=== PATIENT | male | born 1995 | race Caucasian/White ===

== ENCOUNTER 2019-04-06 11:22 | Inpatient (IN) | payer OTHER ==
[2019-04-06 12:17] LABS: ADD MAN DIFF? NO
[2019-04-06 12:22] LABS: BASOPHILS % 0.3 % (0.0-2.0); EOSINOPHILS # 0.3 10^3/ul (0.0-0.5); EOSINOPHILS % 4.2 % (0.0-7.0); HEMATOCRIT 42.4 % (42.0-52.0); HEMOGLOBIN 14.4 g/dl (14.0-18.0); LYMPHOCYTES # 0.8 10^3/ul (0.8-2.9); LYMPHOCYTES % 11.9 % (15.0-51.0); MEAN CORPUSCULAR HEMOGLOBIN 30.5 pg (29.0-33.0); MEAN CORPUSCULAR VOLUME 89.8 fl (82.0-101.0); MEAN PLATELET VOLUME 8.5 fl (7.4-10.4); MONOCYTE # 0.5 10^3/ul (0.3-0.9); NEUTROPHIL # 5.3 10^3/ul (1.6-7.5); NEUTROPHILS % 75.9 % (39.0-77.0); PLATELET COUNT 173 10^3/UL (140-415); RED BLOOD COUNT 4.72 10^6/ul (4.70-6.10); RED CELL DISTRIBUTION WIDTH 11.9 % (11.5-14.5)
[2019-04-06] MEDS: SOD CHLORIDE 0.9% 1,000 ML IV (12:26)
[2019-04-06 12:39] LABS: ALANINE AMINOTRANSFERASE 38 IU/L (13-69); ALBUMIN/GLOBULIN RATIO 1.17; ALKALINE PHOSPHATASE 124 IU/L (42-121); ANION GAP 5 (5-13); ASPARTATE AMINO TRANSFERASE 26 IU/L (15-46); BILIRUBIN,INDIRECT 0.5 mg/dl (0-1.1); BILIRUBIN,TOTAL 0.5 mg/dl (0.2-1.3); BLOOD UREA NITROGEN 23 mg/dl (7-20); CALCIUM 9.3 mg/dl (8.4-10.2); CARBON DIOXIDE 32 mmol/L (21-31); CHLORIDE 101 mmol/L (97-110); CREATININE 0.87 mg/dl (0.61-1.24); Estimated GFR > 60 mL/min (>60); GLUCOSE 97 mg/dl (70-220); LIPASE 40 U/L (23-300); POTASSIUM 4.2 mmol/L (3.5-5.1); SODIUM 138 mmol/L (135-144); TOTAL PROTEIN 7.4 g/dl (6.1-8.1)
[2019-04-06 12:52] LABS: ADD UMIC NO; UR ASCORBIC ACID NEGATIVE (NEGATIVE); UR BILIRUBIN (Dip) NEGATIVE (NEGATIVE); UR BLOOD (Dip) NEGATIVE (NEGATIVE); UR CLARITY CLEAR (CLEAR); UR COLOR YELLOW (YELLOW); UR GLUCOSE (Dip) NEGATIVE (NEGATIVE); UR KETONES (Dip) NEGATIVE (NEGATIVE); UR LEUKOCYTE ESTERASE (Dip) NEGATIVE Leu/ul (NEGATIVE); UR NITRITE (Dip) NEGATIVE (NEGATIVE); UR SPECIFIC GRAVITY (Dip) 1.029 (1.003-1.030); UR TOTAL PROTEIN (Dip) NEGATIVE (NEGATIVE); UR UROBILINOGEN (Dip) NEGATIVE (NEGATIVE)
[2019-04-06] MEDS ORDERED: ACETAMINOPHEN 325 MG TAB PO (13:00)
[2019-04-06] MEDS ORDERED: ONDANSETRON 4 MG INJ IV (13:00)
[2019-04-06 15:12] LABS: INR 0.95; PROTIME 12.8 Sec (11.9-14.9)
[2019-04-06 15:13] LABS: PARTIAL THROMBOPLASTIN TIME 37.6 Sec (23.0-35.0)
[2019-04-06 15:18] LABS: LACTATE DEHYDROGENASE 536 IU/L (313-618)
[2019-04-06 15:18] LABS: URIC ACID 8.2 mg/dl (3.1-7.9)
[2019-04-06 15:50] LABS: HEPATITIS B SURFACE ANTIGEN NEGATIVE (NEGATIVE)
[2019-04-06 16:07] LABS: HEPATITIS C VIRAL ANTIBODY NEGATIVE (NEGATIVE); HIV 1&2 ANTIBODY NEGATIVE (NEGATIVE)
[2019-04-06] MEDS ORDERED: ZOLPIDEM 5 MG TAB PO (17:00)
[2019-04-06] MEDS: DOCUSATE SODIUM 100 MG CAP PO (17:00)
[2019-04-07] MEDS: DEXTROSE 5%-0.45% NACL 1,000 ML IV ×3 (01:31→21:47)
[2019-04-07] MEDS: DOCUSATE SODIUM 100 MG CAP PO ×2 (05:00→17:55)
[2019-04-07 06:12] LABS: ADD MAN DIFF? NO
[2019-04-07 06:21] LABS: BASOPHILS % 0.2 % (0.0-2.0); EOSINOPHILS # 0.3 10^3/ul (0.0-0.5); EOSINOPHILS % 5.4 % (0.0-7.0); HEMATOCRIT 39.1 % (42.0-52.0); HEMOGLOBIN 13.1 g/dl (14.0-18.0); LYMPHOCYTES # 1.7 10^3/ul (0.8-2.9); LYMPHOCYTES % 28.7 % (15.0-51.0); MEAN CORPUSCULAR HEMOGLOBIN 30.3 pg (29.0-33.0); MEAN CORPUSCULAR HGB CONC 33.5 g/dl (32.0-37.0); MEAN CORPUSCULAR VOLUME 90.5 fl (82.0-101.0); MEAN PLATELET VOLUME 9.1 fl (7.4-10.4); MONOCYTE # 0.6 10^3/ul (0.3-0.9); NEUTROPHIL # 3.2 10^3/ul (1.6-7.5); NEUTROPHILS % 54.9 % (39.0-77.0); PLATELET COUNT 173 10^3/UL (140-415); RED BLOOD COUNT 4.32 10^6/ul (4.70-6.10); RED CELL DISTRIBUTION WIDTH 12.3 % (11.5-14.5)
[2019-04-07 06:21] LABS: WHITE BLOOD COUNT 5.9 10^3/ul (4.8-10.8)
[2019-04-07 06:59] LABS: ANION GAP 6 (5-13); BLOOD UREA NITROGEN 18 mg/dl (7-20); CARBON DIOXIDE 31 mmol/L (21-31); CHLORIDE 101 mmol/L (97-110); CREATININE 0.87 mg/dl (0.61-1.24); Estimated GFR > 60 mL/min (>60); GLUCOSE 105 mg/dl (70-220); PHOSPHORUS 4.9 mg/dl (2.5-4.9); POTASSIUM 4.3 mmol/L (3.5-5.1); SODIUM 138 mmol/L (135-144)
[2019-04-07] MEDS: ENOXAPARIN 40 MG/0.4 ML SYG SC (08:12)
[2019-04-07] MEDS: FAMOTIDINE 20 MG TAB PO (08:14)
[2019-04-07] MEDS: HYDROCODONE/APAP (5/325) TAB PO (10:28)
[2019-04-07] MEDS: ALLOPURINOL 300 MG TAB PO (14:36)
[2019-04-07 16:47] LABS: PHOSPHORUS 4.2 mg/dl (2.5-4.9)
[2019-04-08] MEDS: DOCUSATE SODIUM 100 MG CAP PO ×2 (05:00→21:17)
[2019-04-08] MEDS: DEXTROSE 5%-0.45% NACL 1,000 ML IV ×2 (08:02→21:41)
[2019-04-08] MEDS: ENOXAPARIN 40 MG/0.4 ML SYG SC (09:00)
[2019-04-08] MEDS: ALLOPURINOL 300 MG TAB PO (09:16)
[2019-04-08] MEDS: FAMOTIDINE 20 MG TAB PO (09:16)
[2019-04-08] MEDS: FENTAnyl 50 MCG/ML VIAL ×3 (15:05→17:26)
[2019-04-08] MEDS: MIDAZOLAM 1 MG/ML 2 ML INJ ×3 (15:06→17:26)
[2019-04-08] MEDS: CEFAZOLIN 1 GM/50 ML (PMX) 50 ML IVPB (15:30)
[2019-04-08] MEDS: POLYMYXIN/BACITRACIN 1L IRRIG IRR (15:30)
[2019-04-08] MEDS: LIDOCAINE 1% (MDV) 20 ML INJ (15:31)
[2019-04-08] MEDS: LIDOCAINE 1%/EPI 30 ML INJ (16:25)
[2019-04-08] MEDS: morphine 2 MG INJ IV (21:16)
[2019-04-08] MEDS: HYDROCODONE/APAP (5/325) TAB PO (23:06)
[2019-04-09] MEDS: morphine 2 MG INJ IV (01:45)
[2019-04-09] MEDS: DOCUSATE SODIUM 100 MG CAP PO ×2 (06:11→16:51)
[2019-04-09] MEDS: HYDROCODONE/APAP (5/325) TAB PO ×2 (06:11→13:51)
[2019-04-09] MEDS: DEXTROSE 5%-0.45% NACL 1,000 ML IV ×3 (08:16→16:51)
[2019-04-09] MEDS: FAMOTIDINE 20 MG TAB PO (08:59)
[2019-04-09] MEDS: ALLOPURINOL 300 MG TAB PO (08:59)
[2019-04-09] MEDS: ENOXAPARIN 40 MG/0.4 ML SYG SC (09:25)
[2019-04-09] MEDS: HYDROmorphONE 1 MG/ML SYG IV ×3 (11:56→22:16)
[2019-04-10] MEDS: HYDROCODONE/APAP (5/325) TAB PO (00:56)
[2019-04-10] MEDS: DOCUSATE SODIUM 100 MG CAP PO ×2 (05:00→16:58)
[2019-04-10 06:05] LABS: ADD MAN DIFF? NO
[2019-04-10 06:16] LABS: WHITE BLOOD COUNT 7.1 10^3/ul (4.8-10.8)
[2019-04-10 06:16] LABS: BASOPHILS % 0.3 % (0.0-2.0); EOSINOPHILS # 0.3 10^3/ul (0.0-0.5); EOSINOPHILS % 4.4 % (0.0-7.0); HEMATOCRIT 39.6 % (42.0-52.0); HEMOGLOBIN 13.2 g/dl (14.0-18.0); LYMPHOCYTES # 1.8 10^3/ul (0.8-2.9); LYMPHOCYTES % 25.9 % (15.0-51.0); MEAN CORPUSCULAR HEMOGLOBIN 30.3 pg (29.0-33.0); MEAN CORPUSCULAR HGB CONC 33.3 g/dl (32.0-37.0); MEAN PLATELET VOLUME 8.9 fl (7.4-10.4); MONOCYTE # 0.6 10^3/ul (0.3-0.9); MONOCYTES % 8.6 % (0.0-11.0); NEUTROPHIL # 4.3 10^3/ul (1.6-7.5); NEUTROPHILS % 60.2 % (39.0-77.0); PLATELET COUNT 196 10^3/UL (140-415); RED BLOOD COUNT 4.35 10^6/ul (4.70-6.10); RED CELL DISTRIBUTION WIDTH 12.3 % (11.5-14.5)
[2019-04-10 06:32] LABS: ANION GAP 7 (5-13); BLOOD UREA NITROGEN 16 mg/dl (7-20); CALCIUM 9.4 mg/dl (8.4-10.2); CARBON DIOXIDE 31 mmol/L (21-31); CHLORIDE 101 mmol/L (97-110); CREATININE 0.93 mg/dl (0.61-1.24); Estimated GFR > 60 mL/min (>60); GLUCOSE 121 mg/dl (70-220); POTASSIUM 4.2 mmol/L (3.5-5.1); SODIUM 139 mmol/L (135-144)
[2019-04-10] MEDS: SOD CHLORIDE 0.45% 1,000 ML IV (09:25)
[2019-04-10] MEDS: ALLOPURINOL 300 MG TAB PO (09:25)
[2019-04-10] MEDS: FAMOTIDINE 20 MG TAB PO (09:25)
[2019-04-10] MEDS: ENOXAPARIN 40 MG/0.4 ML SYG SC (09:32)
[2019-04-10] MEDS: HYDROmorphONE 1 MG/ML SYG IV ×2 (09:40→09:41)
[2019-04-10] MEDS: DEXAMETHASONE 4 MG/ML 20 MG, ONDANSETRON INJ 16 MG in SOD CHLORIDE 0.9% 50 ML IVPB (11:50)
[2019-04-10] MEDS: ACETAMINOPHEN 325 MG TAB PO (11:53)
[2019-04-10] MEDS: DIPHENHYDRAMINE 50 MG INJ IV (11:57)
[2019-04-10] MEDS: RITUXIMAB IV (13:20)
[2019-04-10] MEDS: SOD CHLORIDE 0.9% IV (13:20)
[2019-04-10] MEDS: METHYLPREDNISOLONE 125 MG INJ IV (15:49)
[2019-04-10] MEDS ORDERED: ONDANSETRON INJ 8 MG in DEXTROSE 5% 50 ML IV (22:00)
[2019-04-11] MEDS: ONDANSETRON INJ 16 MG, DEXAMETHASONE 4 MG/ML 20 MG in DEXTROSE 5% 50 ML IV (00:30)
[2019-04-11] MEDS: SOD CHLORIDE 0.45% 1,000 ML IV ×3 (00:30→23:31)
[2019-04-11] MEDS: DIPHENHYDRAMINE 50 MG INJ IV (00:36)
[2019-04-11] MEDS: DOXORUBICIN IV (01:02)
[2019-04-11] MEDS: SOD CHLORIDE 0.9% IV (01:02)
[2019-04-11] MEDS: ETOPOSIDE IV (01:02)
[2019-04-11] MEDS: VINCRISTINE IV (01:02)
[2019-04-11] MEDS: ONDANSETRON 4 MG INJ IV (03:16)
[2019-04-11] MEDS: HYDROmorphONE 1 MG/ML SYG IV ×3 (03:47→20:47)
[2019-04-11 05:17] LABS: ADD MAN DIFF? NO
[2019-04-11] MEDS: DOCUSATE SODIUM 100 MG CAP PO ×2 (05:22→17:00)
[2019-04-11 05:23] LABS: ABNORMAL IP MESSAGE 1; BASOPHILS % 0.1 % (0.0-2.0); HEMOGLOBIN 13.6 g/dl (14.0-18.0); LYMPHOCYTES # 0.5 10^3/ul (0.8-2.9); LYMPHOCYTES % 5.4 % (15.0-51.0); MEAN CORPUSCULAR HEMOGLOBIN 31.1 pg (29.0-33.0); MEAN CORPUSCULAR HGB CONC 34.9 g/dl (32.0-37.0); MONOCYTE # 0.1 10^3/ul (0.3-0.9); NEUTROPHIL # 9.1 10^3/ul (1.6-7.5); NEUTROPHILS % 92.8 % (39.0-77.0); PLATELET COUNT 226 10^3/UL (140-415); POSITIVE DIFF @See below; RED BLOOD COUNT 4.38 10^6/ul (4.70-6.10); RED CELL DISTRIBUTION WIDTH 11.9 % (11.5-14.5)
[2019-04-11 05:23] LABS: WHITE BLOOD COUNT 9.8 10^3/ul (4.8-10.8)
[2019-04-11 05:38] LABS: URIC ACID 5.1 mg/dl (3.1-7.9)
[2019-04-11 05:58] LABS: ANION GAP 11 (5-13); BLOOD UREA NITROGEN 18 mg/dl (7-20); CALCIUM 9.7 mg/dl (8.4-10.2); CARBON DIOXIDE 25 mmol/L (21-31); CHLORIDE 103 mmol/L (97-110); CREATININE 0.88 mg/dl (0.61-1.24); Estimated GFR > 60 mL/min (>60); GLUCOSE 168 mg/dl (70-220); POTASSIUM 4.2 mmol/L (3.5-5.1); SODIUM 139 mmol/L (135-144)
[2019-04-11] MEDS: FAMOTIDINE 20 MG TAB PO (08:54)
[2019-04-11] MEDS: predniSONE 20 MG TAB PO (08:55)
[2019-04-11] MEDS: ALLOPURINOL 300 MG TAB PO (08:55)
[2019-04-11] MEDS ORDERED: predniSONE 20 MG TAB PO (09:00)
[2019-04-11] MEDS: ENOXAPARIN 40 MG/0.4 ML SYG SC (09:01)
[2019-04-11 09:39] LABS: ADD UMIC NO; UR ASCORBIC ACID NEGATIVE (NEGATIVE); UR BILIRUBIN (Dip) NEGATIVE (NEGATIVE); UR BLOOD (Dip) NEGATIVE (NEGATIVE); UR CLARITY CLEAR (CLEAR); UR COLOR YELLOW (YELLOW); UR GLUCOSE (Dip) NEGATIVE (NEGATIVE); UR KETONES (Dip) NEGATIVE (NEGATIVE); UR LEUKOCYTE ESTERASE (Dip) NEGATIVE Leu/ul (NEGATIVE); UR NITRITE (Dip) NEGATIVE (NEGATIVE); UR TOTAL PROTEIN (Dip) NEGATIVE (NEGATIVE); UR UROBILINOGEN (Dip) NEGATIVE (NEGATIVE)
[2019-04-11] MEDS: ONDANSETRON INJ 16 MG in SOD CHLORIDE 0.9% 50 ML IVPB (23:30)
[2019-04-12] MEDS: DIPHENHYDRAMINE 50 MG INJ IV (00:07)
[2019-04-12] MEDS: VINCRISTINE IV (00:27)
[2019-04-12] MEDS: DOXORUBICIN IV (00:27)
[2019-04-12] MEDS: ETOPOSIDE IV (00:27)
[2019-04-12] MEDS: SOD CHLORIDE 0.9% IV (00:27)
[2019-04-12] MEDS: DOCUSATE SODIUM 100 MG CAP PO ×2 (05:00→17:21)
[2019-04-12 05:18] LABS: ADD MAN DIFF? NO
[2019-04-12 05:35] LABS: BASOPHILS % 0.2 % (0.0-2.0); HEMATOCRIT 37.4 % (42.0-52.0); HEMOGLOBIN 12.8 g/dl (14.0-18.0); LYMPHOCYTES % 7.2 % (15.0-51.0); MEAN CORPUSCULAR HEMOGLOBIN 31.1 pg (29.0-33.0); MEAN CORPUSCULAR HGB CONC 34.2 g/dl (32.0-37.0); MEAN CORPUSCULAR VOLUME 90.8 fl (82.0-101.0); MEAN PLATELET VOLUME 9.3 fl (7.4-10.4); MONOCYTE # 1.2 10^3/ul (0.3-0.9); MONOCYTES % 9.4 % (0.0-11.0); NEUTROPHIL # 10.9 10^3/ul (1.6-7.5); NEUTROPHILS % 82.6 % (39.0-77.0); PLATELET COUNT 236 10^3/UL (140-415); RED BLOOD COUNT 4.12 10^6/ul (4.70-6.10); RED CELL DISTRIBUTION WIDTH 12.3 % (11.5-14.5)
[2019-04-12 05:35] LABS: WHITE BLOOD COUNT 13.2 10^3/ul (4.8-10.8)
[2019-04-12 06:00] LABS: ANION GAP 8 (5-13); BLOOD UREA NITROGEN 18 mg/dl (7-20); CALCIUM 9.2 mg/dl (8.4-10.2); CARBON DIOXIDE 27 mmol/L (21-31); CHLORIDE 104 mmol/L (97-110); CREATININE 0.81 mg/dl (0.61-1.24); Estimated GFR > 60 mL/min (>60); GLUCOSE 137 mg/dl (70-220); POTASSIUM 3.9 mmol/L (3.5-5.1); SODIUM 139 mmol/L (135-144)
[2019-04-12] MEDS: ALLOPURINOL 300 MG TAB PO (08:53)
[2019-04-12] MEDS: FAMOTIDINE 20 MG TAB PO (08:53)
[2019-04-12] MEDS: ENOXAPARIN 40 MG/0.4 ML SYG SC (08:57)
[2019-04-12] MEDS: HYDROCODONE/APAP (5/325) TAB PO (10:08)
[2019-04-12] MEDS: predniSONE 20 MG TAB PO (10:08)
[2019-04-12] MEDS: MAGNESIUM HYDROXIDE 30ML CUP PO (15:10)
[2019-04-12] MEDS: SOD CHLORIDE 0.45% 1,000 ML IV (15:28)
[2019-04-12] MEDS: HYDROmorphONE 1 MG/ML SYG IV (16:17)
[2019-04-12] MEDS: ACETAMINOPHEN 325 MG TAB PO (20:39)
[2019-04-13] MEDS: ONDANSETRON INJ 16 MG in SOD CHLORIDE 0.9% 50 ML IVPB (01:02)
[2019-04-13] MEDS: DIPHENHYDRAMINE 50 MG INJ IV (01:50)
[2019-04-13] MEDS: VINCRISTINE IV (02:01)
[2019-04-13] MEDS: DOXORUBICIN IV (02:01)
[2019-04-13] MEDS: ETOPOSIDE IV (02:01)
[2019-04-13] MEDS: SOD CHLORIDE 0.9% IV (02:01)
[2019-04-13] MEDS: SOD CHLORIDE 0.45% 1,000 ML IV (03:59)
[2019-04-13 05:42] LABS: ADD MAN DIFF? NO
[2019-04-13 05:53] LABS: WHITE BLOOD COUNT 6.1 10^3/ul (4.8-10.8)
[2019-04-13 05:53] LABS: BASOPHILS % 0.2 % (0.0-2.0); EOSINOPHILS % 0.3 % (0.0-7.0); HEMATOCRIT 36.9 % (42.0-52.0); HEMOGLOBIN 12.6 g/dl (14.0-18.0); LYMPHOCYTES # 1.3 10^3/ul (0.8-2.9); LYMPHOCYTES % 21.7 % (15.0-51.0); MEAN CORPUSCULAR HEMOGLOBIN 30.4 pg (29.0-33.0); MEAN CORPUSCULAR HGB CONC 34.1 g/dl (32.0-37.0); MEAN CORPUSCULAR VOLUME 89.1 fl (82.0-101.0); MEAN PLATELET VOLUME 9.1 fl (7.4-10.4); MONOCYTE # 0.6 10^3/ul (0.3-0.9); NEUTROPHIL # 4.1 10^3/ul (1.6-7.5); NEUTROPHILS % 67.1 % (39.0-77.0); PLATELET COUNT 223 10^3/UL (140-415); RED BLOOD COUNT 4.14 10^6/ul (4.70-6.10); RED CELL DISTRIBUTION WIDTH 12.5 % (11.5-14.5)
[2019-04-13 06:17] LABS: ANION GAP 8 (5-13); BLOOD UREA NITROGEN 18 mg/dl (7-20); CALCIUM 9.1 mg/dl (8.4-10.2); CARBON DIOXIDE 28 mmol/L (21-31); CHLORIDE 102 mmol/L (97-110); CREATININE 0.76 mg/dl (0.61-1.24); Estimated GFR > 60 mL/min (>60); GLUCOSE 95 mg/dl (70-220); POTASSIUM 3.9 mmol/L (3.5-5.1); SODIUM 138 mmol/L (135-144)
[2019-04-13] MEDS: DOCUSATE SODIUM 100 MG CAP PO ×2 (09:21→21:06)
[2019-04-13] MEDS: ALLOPURINOL 300 MG TAB PO (09:21)
[2019-04-13] MEDS: FAMOTIDINE 20 MG TAB PO (09:22)
[2019-04-13] MEDS: ENOXAPARIN 40 MG/0.4 ML SYG SC (09:32)
[2019-04-13] MEDS: predniSONE 20 MG TAB PO (09:54)
[2019-04-13] MEDS: HYDROmorphONE 1 MG/ML SYG IV ×2 (12:17→18:22)
[2019-04-13] MEDS: HYDROCODONE/APAP (5/325) TAB PO (15:03)
[2019-04-13] MEDS: FAMOTIDINE 20 MG INJ IV (15:42)
[2019-04-14] MEDS: HYDROCODONE/APAP (5/325) TAB PO (00:22)
[2019-04-14] MEDS: ETOPOSIDE IV ×2 (01:00→05:23)
[2019-04-14] MEDS: DOXORUBICIN IV ×2 (01:00→05:23)
[2019-04-14] MEDS: SOD CHLORIDE 0.9% IV ×2 (01:00→05:23)
[2019-04-14] MEDS: VINCRISTINE IV ×2 (01:00→05:23)
[2019-04-14] MEDS: DIPHENHYDRAMINE 50 MG INJ IV (02:30)
[2019-04-14] MEDS: ONDANSETRON INJ 16 MG in SOD CHLORIDE 0.9% 50 ML IVPB (04:25)
[2019-04-14 06:04] LABS: ADD MAN DIFF? NO
[2019-04-14 06:14] LABS: BASOPHILS % 0.2 % (0.0-2.0); EOSINOPHILS % 0.2 % (0.0-7.0); HEMATOCRIT 36.5 % (42.0-52.0); HEMOGLOBIN 12.7 g/dl (14.0-18.0); LYMPHOCYTES # 1.7 10^3/ul (0.8-2.9); LYMPHOCYTES % 27.2 % (15.0-51.0); MEAN CORPUSCULAR HEMOGLOBIN 30.6 pg (29.0-33.0); MEAN CORPUSCULAR HGB CONC 34.8 g/dl (32.0-37.0); MEAN PLATELET VOLUME 9.1 fl (7.4-10.4); MONOCYTE # 0.3 10^3/ul (0.3-0.9); NEUTROPHIL # 4.3 10^3/ul (1.6-7.5); NEUTROPHILS % 67.9 % (39.0-77.0); PLATELET COUNT 217 10^3/UL (140-415); RED BLOOD COUNT 4.15 10^6/ul (4.70-6.10); RED CELL DISTRIBUTION WIDTH 12.1 % (11.5-14.5)
[2019-04-14 06:14] LABS: WHITE BLOOD COUNT 6.3 10^3/ul (4.8-10.8)
[2019-04-14 06:43] LABS: ANION GAP 6 (5-13); BLOOD UREA NITROGEN 18 mg/dl (7-20); CALCIUM 9.1 mg/dl (8.4-10.2); CARBON DIOXIDE 30 mmol/L (21-31); CHLORIDE 101 mmol/L (97-110); Estimated GFR > 60 mL/min (>60); GLUCOSE 98 mg/dl (70-220); POTASSIUM 3.7 mmol/L (3.5-5.1); SODIUM 137 mmol/L (135-144)
[2019-04-14] MEDS: ALLOPURINOL 300 MG TAB PO (09:08)
[2019-04-14] MEDS: DOCUSATE SODIUM 100 MG CAP PO ×2 (09:08→21:17)
[2019-04-14] MEDS: FAMOTIDINE 20 MG TAB PO (09:09)
[2019-04-14] MEDS: ENOXAPARIN 40 MG/0.4 ML SYG SC (09:14)
[2019-04-14] MEDS: ACETAMINOPHEN 325 MG TAB PO ×2 (09:29→21:23)
[2019-04-14] MEDS: predniSONE 20 MG TAB PO (10:14)
[2019-04-14] MEDS: HYDROmorphONE 1 MG/ML SYG IV ×2 (15:32→23:07)
[2019-04-14] MEDS: FAMOTIDINE 20 MG INJ IV (18:47)
[2019-04-15] MEDS: DIPHENHYDRAMINE 50 MG INJ IV (00:42)
[2019-04-15 05:47] LABS: ADD MAN DIFF? NO
[2019-04-15 05:54] LABS: BASOPHILS % 0.2 % (0.0-2.0); EOSINOPHILS % 0.5 % (0.0-7.0); HEMATOCRIT 37.8 % (42.0-52.0); HEMOGLOBIN 13.1 g/dl (14.0-18.0); LYMPHOCYTES # 1.7 10^3/ul (0.8-2.9); LYMPHOCYTES % 25.7 % (15.0-51.0); MEAN CORPUSCULAR HGB CONC 34.7 g/dl (32.0-37.0); MEAN CORPUSCULAR VOLUME 86.7 fl (82.0-101.0); MONOCYTE # 0.1 10^3/ul (0.3-0.9); MONOCYTES % 1.8 % (0.0-11.0); NEUTROPHIL # 4.8 10^3/ul (1.6-7.5); NEUTROPHILS % 71.5 % (39.0-77.0); PLATELET COUNT 235 10^3/UL (140-415); RED BLOOD COUNT 4.36 10^6/ul (4.70-6.10); RED CELL DISTRIBUTION WIDTH 11.9 % (11.5-14.5)
[2019-04-15 05:54] LABS: WHITE BLOOD COUNT 6.7 10^3/ul (4.8-10.8)
[2019-04-15 06:45] LABS: ANION GAP 8 (5-13); BLOOD UREA NITROGEN 19 mg/dl (7-20); CALCIUM 9.1 mg/dl (8.4-10.2); CARBON DIOXIDE 29 mmol/L (21-31); CHLORIDE 100 mmol/L (97-110); CREATININE 0.82 mg/dl (0.61-1.24); Estimated GFR > 60 mL/min (>60); GLUCOSE 95 mg/dl (70-220); POTASSIUM 3.7 mmol/L (3.5-5.1); SODIUM 137 mmol/L (135-144)
[2019-04-15] MEDS: ONDANSETRON 4 MG INJ IV (09:21)
[2019-04-15] MEDS: ALLOPURINOL 300 MG TAB PO (09:22)
[2019-04-15] MEDS: DOCUSATE SODIUM 100 MG CAP PO ×2 (09:22→20:00)
[2019-04-15] MEDS: HYDROmorphONE 1 MG/ML SYG IV ×3 (09:22→23:25)
[2019-04-15] MEDS: FAMOTIDINE 20 MG TAB PO (09:23)
[2019-04-15] MEDS: ENOXAPARIN 40 MG/0.4 ML SYG SC (09:24)
[2019-04-15] MEDS: ONDANSETRON INJ 16 MG in SOD CHLORIDE 0.9% 50 ML IVPB (16:40)
[2019-04-15] MEDS: ACETAMINOPHEN 325 MG TAB PO (16:44)
[2019-04-15] MEDS: SOD CHLORIDE 0.9% IV (17:42)
[2019-04-15] MEDS: CYCLOPHOSPHAMIDE IV (17:42)
[2019-04-15] MEDS: SOD CHLORIDE 0.45% 1,000 ML IV (18:17)
[2019-04-15] MEDS: HYDROCODONE/APAP (5/325) TAB PO (20:36)
[2019-04-16] MEDS: DIPHENHYDRAMINE 50 MG INJ IV (00:13)
[2019-04-16 05:14] LABS: WHITE BLOOD COUNT 5.2 10^3/ul (4.8-10.8)
[2019-04-16 05:14] LABS: HEMATOCRIT 35.7 % (42.0-52.0); HEMOGLOBIN 12.5 g/dl (14.0-18.0); MEAN CORPUSCULAR HEMOGLOBIN 30.6 pg (29.0-33.0); MEAN CORPUSCULAR VOLUME 87.5 fl (82.0-101.0); MEAN PLATELET VOLUME 8.8 fl (7.4-10.4); PLATELET COUNT 202 10^3/UL (140-415); POSITIVE DIFF @See below; RED BLOOD COUNT 4.08 10^6/ul (4.70-6.10); RED CELL DISTRIBUTION WIDTH 11.9 % (11.5-14.5)
[2019-04-16 05:18] LABS: ADD MAN DIFF? YES
[2019-04-16 05:35] LABS: ANION GAP 5 (5-13); BLOOD UREA NITROGEN 17 mg/dl (7-20); CALCIUM 8.7 mg/dl (8.4-10.2); CARBON DIOXIDE 32 mmol/L (21-31); CHLORIDE 100 mmol/L (97-110); CREATININE 0.83 mg/dl (0.61-1.24); Estimated GFR > 60 mL/min (>60); GLUCOSE 90 mg/dl (70-220); POTASSIUM 3.8 mmol/L (3.5-5.1); SODIUM 137 mmol/L (135-144)
[2019-04-16] MEDS: SOD CHLORIDE 0.45% 1,000 ML IV ×2 (06:46→22:08)
[2019-04-16 07:11] LABS: BAND NEUTROPHILS % (M) 1 % (0-4); BASOPHILS % (M) 1 % (0-2); EOSINOPHILS % (M) 4 % (0-7); LYMPHOCYTES % (M) 40 % (15-51); PLATELET ESTIMATE NORMAL; POIKILOCYTOSIS 1+ (0-0); REACTIVE LYMPHOCYTES #M 0.1 10^3/ul (0.0-0.0); REACTIVE LYMPHOCYTES% (M) 3 % (0-0); SEG NEUT #M 2.7 10^3/ul (1.6-7.5); SEGMENTED NEUTROPHILS (M) % 51 % (39-77); SMUDGE%M 54 % (0-0)
[2019-04-16] MEDS: DOCUSATE SODIUM 100 MG CAP PO ×2 (09:15→20:09)
[2019-04-16] MEDS: FAMOTIDINE 20 MG TAB PO (09:16)
[2019-04-16] MEDS: ALLOPURINOL 300 MG TAB PO (09:16)
[2019-04-16] MEDS: ENOXAPARIN 40 MG/0.4 ML SYG SC (09:29)
[2019-04-16] MEDS: HYDROmorphONE 1 MG/ML SYG IV ×3 (10:09→21:17)
[2019-04-16] MEDS: FILGRASTIM-AAFI 480 MCG/0.8 ML SYRINGE SC (16:35)
[2019-04-16] MEDS: HYDROCODONE/APAP (5/325) TAB PO (20:10)
[2019-04-17] MEDS: DIPHENHYDRAMINE 50 MG INJ IV (00:57)
[2019-04-17] MEDS: HYDROmorphONE 1 MG/ML SYG IV ×4 (01:19→20:48)
[2019-04-17] MEDS: ALLOPURINOL 300 MG TAB PO (09:06)
[2019-04-17] MEDS: DOCUSATE SODIUM 100 MG CAP PO ×2 (09:06→20:48)
[2019-04-17] MEDS: FAMOTIDINE 20 MG TAB PO ×2 (09:06→20:48)
[2019-04-17] MEDS: ENOXAPARIN 40 MG/0.4 ML SYG SC (09:08)
[2019-04-17] MEDS: ACETAMINOPHEN 500 MG TAB PO (09:13)
[2019-04-17] MEDS: KETOROLAC 15 MG INJ IV (09:13)
[2019-04-17] MEDS: SOD CHLORIDE 0.45% 1,000 ML IV ×2 (10:30→13:11)
[2019-04-17] MEDS: METOCLOPRAMIDE 10 MG INJ IV (12:29)
[2019-04-17] MEDS: DIPHENHYD/MYLANTA/LIDO (PO SYG) PO ×2 (13:11→18:14)
[2019-04-17] MEDS: PANTOPRAZOLE (EC) 40 MG TAB PO (13:11)
[2019-04-17] MEDS: FILGRASTIM-AAFI 480 MCG/0.8 ML SYRINGE SC (17:43)
[2019-04-17] MEDS: POLYETHYLENE GLYCOL 17 GM PACKET PO (20:48)
[2019-04-17] MEDS: HYDROCODONE/APAP (5/325) TAB PO (23:26)
[2019-04-18] MEDS: DIPHENHYDRAMINE 50 MG INJ IV (00:56)
[2019-04-18] MEDS: DIPHENHYD/MYLANTA/LIDO (PO SYG) PO ×3 (00:57→11:45)
[2019-04-18] MEDS: HYDROmorphONE 1 MG/ML SYG IV ×2 (00:57→10:36)
[2019-04-18] MEDS: SOD CHLORIDE 0.45% 1,000 ML IV (02:12)
[2019-04-18] MEDS: ALLOPURINOL 300 MG TAB PO (08:27)
[2019-04-18] MEDS: FAMOTIDINE 20 MG TAB PO (08:28)
[2019-04-18] MEDS: DOCUSATE SODIUM 100 MG CAP PO (08:28)
[2019-04-18] MEDS: HYDROCODONE/APAP (5/325) TAB PO ×2 (08:32→15:03)
[2019-04-18] MEDS: ENOXAPARIN 40 MG/0.4 ML SYG SC (08:32)
[2019-04-18] MEDS: FILGRASTIM-AAFI 480 MCG/0.8 ML SYRINGE SC (15:55)
[2019-04-18] MEDS: HEPARIN (100 UNITS/ML) 5 ML SYG CATHETER (15:56)
== END 2019-04-18 16:47 | disposition home or self-care (01) | DRG 847 ==
LOC: E/R 11:22 → MS1 12:52
PROVIDERS: Family Medicine
PROC: 07DR3ZX Extraction of Iliac Bone Marrow, Percutaneous Approach, Diagnostic (ICD-10-PCS; principal; 2019-04-08)
PROC: 0JH63WZ Insertion of Totally Implantable Vascular Access Device into Chest Subcutaneous Tissue and Fascia, Percutaneous Approach (ICD-10-PCS; 2019-04-08)
PROC: 02HV33Z Insertion of Infusion Device into Superior Vena Cava, Percutaneous Approach (ICD-10-PCS; 2019-04-08)
PROC: B548ZZA Ultrasonography of Superior Vena Cava, Guidance (ICD-10-PCS; 2019-04-08)
PROC: B518YZA Fluoroscopy of Superior Vena Cava using Other Contrast, Guidance (ICD-10-PCS; 2019-04-08)
PROC: 3E04305 Introduction of Other Antineoplastic into Central Vein, Percutaneous Approach (ICD-10-PCS; 2019-04-10)
DX: Z51.11 Encounter for antineoplastic chemotherapy (principal); C83.31 Diffuse large B-cell lymphoma, lymph nodes of head, face, and neck; Z68.41 Body mass index [BMI] 40.0-44.9, adult; C83.39 Diffuse large B-cell lymphoma, extranodal and solid organ sites; C83.38 Diffuse large B-cell lymphoma, lymph nodes of multiple sites; E66.01 Morbid (severe) obesity due to excess calories; M54.6 Pain in thoracic spine; K12.32 Oral mucositis (ulcerative) due to other drugs; Z71.3 Dietary counseling and surveillance; R11.0 Nausea
CPT/HCPCS: 36415; 36561; 76942; 77012; 80048; 80053; 81003; 82962; 83615; 83690; 83735; 84100; 84560; 85025; 85610; 85730; 86703; 86803; 87340; 88305; 88313; 88341; 88342; 93306; 97110; 97116; 97161; 97530; 99285-25; J9181

== ENCOUNTER 2019-04-21 20:10 | Emergency (ER) | payer OTHER ==
[2019-04-21 20:51] LABS: WHITE BLOOD COUNT 1.3 10^3/ul (4.8-10.8)
[2019-04-21 20:51] LABS: ABNORMAL IP MESSAGE 1; HEMATOCRIT 37.5 % (42.0-52.0); HEMOGLOBIN 12.9 g/dl (14.0-18.0); MEAN CORPUSCULAR HEMOGLOBIN 30.5 pg (29.0-33.0); MEAN CORPUSCULAR HGB CONC 34.4 g/dl (32.0-37.0); MEAN CORPUSCULAR VOLUME 88.7 fl (82.0-101.0); MEAN PLATELET VOLUME 9.1 fl (7.4-10.4); PLATELET COUNT 135 10^3/UL (140-415); POSITIVE DIFF @See below; RED BLOOD COUNT 4.23 10^6/ul (4.70-6.10); RED CELL DISTRIBUTION WIDTH 11.6 % (11.5-14.5)
[2019-04-21] MEDS: ONDANSETRON 4 MG INJ IV (20:53)
[2019-04-21] MEDS: LIDOCAINE/MYLANTA 40 ML BTL PO (20:53)
[2019-04-21] MEDS: HYDROmorphONE 1 MG/ML SYG IV (20:53)
[2019-04-21] MEDS: SOD CHLORIDE 0.9% 1,000 ML IV (20:53)
[2019-04-21 20:57] LABS: ADD MAN DIFF? YES
[2019-04-21 21:07] LABS: ALANINE AMINOTRANSFERASE 44 IU/L (13-69); ALBUMIN 4.3 g/dl (3.3-4.9); ALBUMIN/GLOBULIN RATIO 1.43; ALKALINE PHOSPHATASE 126 IU/L (42-121); ANION GAP 12 (5-13); ASPARTATE AMINO TRANSFERASE 23 IU/L (15-46); BILIRUBIN,INDIRECT 0.2 mg/dl (0-1.1); BILIRUBIN,TOTAL 0.2 mg/dl (0.2-1.3); BLOOD UREA NITROGEN 12 mg/dl (7-20); CALCIUM 9.6 mg/dl (8.4-10.2); CARBON DIOXIDE 28 mmol/L (21-31); CHLORIDE 98 mmol/L (97-110); CREATININE 0.79 mg/dl (0.61-1.24); Estimated GFR > 60 mL/min (>60); GLUCOSE 122 mg/dl (70-220); LIPASE 25 U/L (23-300); POTASSIUM 4.3 mmol/L (3.5-5.1); SODIUM 138 mmol/L (135-144); TOTAL PROTEIN 7.3 g/dl (6.1-8.1)
[2019-04-21 21:36] LABS: ANISOCYTOSIS 2+ (0-0); BAND NEUTROPHILS % (M) 6 % (0-4); EOSINOPHILS % (M) 1 % (0-7); GIANT THROMBO% (M) 1 % (0-0); LYMPHOCYTES #M 0.8 10^3/ul (0.8-2.9); LYMPHOCYTES % (M) 68 % (15-51); MICROCYTOSIS 1+ (0-0); MONOCYTE #M 0.1 10^3/ul (0.3-0.9); MONOCYTES % (M) 14 % (0-11); PLATELET MORPHOLOGY COMMENT @See below; POLYCHROMASIA 1+ (0-0); REACTIVE LYMPHOCYTES% (M) 3 % (0-0); SEG NEUT #M 0.1 10^3/ul (1.6-7.5); SEGMENTED NEUTROPHILS (M) % 8 % (39-77); SMUDGE%M 4 % (0-0)
[2019-04-21] MEDS: HYDROmorphONE 2 MG/ML SYG IV (22:16)
== END 2019-04-21 22:50 | disposition home or self-care (01) ==
LOC: E/R 20:10
DX: R51 Headache (principal); C85.90 Non-Hodgkin lymphoma, unspecified, unspecified site
CPT/HCPCS: 36415; 70450; 80053; 83690; 85025; 96374; 96375; 99285-25

== ENCOUNTER 2019-05-12 19:54 | Emergency (ER) | payer OTHER | END 2019-05-12 21:28 | disposition home or self-care (01) | LOC: FTE 19:54 | DX: J32.9 Chronic sinusitis, unspecified (principal); Z85.72 Personal history of non-Hodgkin lymphomas | CPT/HCPCS: 99282; Z7502 ==

== ENCOUNTER 2019-05-22 12:15 | Emergency (ER) | payer OTHER ==
[2019-05-22] MEDS: SODIUM CHLORIDE 0.9% 1L IRRIG IRR (14:17)
[2019-05-22] MEDS: TETRACAINE 0.5% 4 ML OPH LEFT EYE (14:17)
== END 2019-05-22 16:02 | disposition home or self-care (01) ==
LOC: E/R 16:02
DX: C85.18 Unspecified B-cell lymphoma, lymph nodes of multiple sites (principal); H10.32 Unspecified acute conjunctivitis, left eye; R40.2142 Coma scale, eyes open, spontaneous, at arrival to emergency department; R40.2252 Coma scale, best verbal response, oriented, at arrival to emergency department; R40.2362 Coma scale, best motor response, obeys commands, at arrival to emergency department
CPT/HCPCS: 80048; 85025; 99283